=== PATIENT | male | born 1950 | race Hispanic/Latino ===

== ENCOUNTER 2019-03-01 16:29 | Emergency (ER) | payer SELFPAY ==
--- NOTE | 2019-03-01 17:11 | Emergency Department Report ---
Chief Complaint: Fall Stated Complaint: FALL/RT LEG AND ANKLE INJURY Time Seen by Provider: 03/01/19 17:09 - HPI History of Present Illness: pt states he slipped and fell in his house yesterday presents with right ankle pain and right foot pain pt is able to bear some weight states he hurt previously from basketball years ago hx of HTN, hypothyroid MSE screening note: Focused history and physical exam performed. Due to findings the following was ordered: XR right ankle and foot ED Disposition for MSE Condition: Stable
--- NOTE | 2019-03-01 18:07 | XRay Report ---
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 No acute fracture or disloca tion. IMPRESSION: No acute fracture or dislocation. There are osteoarthritic changes of the first metatarsophalangeal j oint. This document is electronically signed by Brenda Guo MD., March 01 2019 06:06:02 PM ET
--- NOTE | 2019-03-01 18:25 | XRay Report ---
PROCEDURE: XR ANKLE 3+V RT TECHNIQUE: Frontal, lateral, oblique views right ankle HISTORY: fall, right ankle pain COMPARISONS: X-ray right foot also performed today FINDINGS: There is a linear lucency through the distal fibula metaphysis with associated soft tissue swelling c oncerning for a nondisplaced fracture in this region. There is deformity of the distal diaphysis of the right fibula suggestive of sequela of previous frac tures. The distal tibia is unremarkable in appearance. The mortise joint is maintained. There is soft tissue swelling at the level of the ankle, lateral greater than medial. IMPRESSION: 1. Findings suggestive of a nondisplaced fracture through the distal fibula metaphysis. 2. Deformity distal diaphysis of the right fibula suggestive of sequela of previous fractures. Correl ation with clinical history will be helpful. This document is electronically signed by Nitza Chin MD., March 01 2019 06:23:11 PM ET
[2019-03-01] MEDS ORDERED: TORADOL IM ONE (20:05)
--- NOTE | 2019-03-01 20:07 | Emergency Department Report ---
ED Lower Extremity HPI - General Chief Complaint: Fall Stated Complaint: FALL/RT LEG AND ANKLE INJURY Time Seen by Provider: 03/01/19 17:09 Source: patient Mode of arrival: Ambulatory Limitations: No Limitations - History of Present Illness Initial Comments: She is a 68-year-old male who is status post ground-level fall after tripping at home now complaining of right leg pain. There is no obvious deformity on admission. - Related Data Home Medications Medication Instructions Recorded Confirmed Last Taken Lisinopril [Zestril] 20 mg PO QDAY 12/13/13 12/13/13 12/12/13 Previous Rx's Medication Instructions Recorded Last Taken Type DOXYCYCLINE Hyclate [Vibramycin 100 mg PO Q12HR #28 capsule 10/21/18 Unknown Rx CAP] metroNIDAZOLE [Flagyl] 500 mg PO Q12HR #28 tab 10/21/18 Unknown Rx Allergies Allergy/AdvReac Type Severity Reaction Status Date / Time Penicillins Allergy Anaphylaxis Verified 03/01/19 16:30 ED Review of Systems ROS: Stated complaint: FALL/RT LEG AND ANKLE INJURY Other details as noted in HPI Comment: All other systems reviewed and negative Musculoskeletal: as per HPI ED Past Medical Hx - Past Medical History Previous Medical History?: No Hx Hypertension: Yes Hx Heart Attack/AMI: No Hx Congestive Heart Failure: No Hx Diabetes: No Hx Deep Vein Thrombosis: No Hx Pulmonary Embolism: No Hx Liver Disease: No Hx Renal Disease: No Hx Sickle Cell Disease: No Hx Arthritis: No Hx Seizures: No Hx Kidney Stones: No Hx Psychiatric Treatment: Yes Hx Asthma: No Hx COPD: No Hx Dementia: No Hx HIV: No Additional medical history: hyperthroidism - Surgical History Past Surgical History?: No Hx Coronary Stent: No Hx Open Heart Surgery: No Hx Pacemaker: No Hx Internal Defibrillator: No Hx Cholecystectomy: No Hx Appendectomy: No Hx Breast Surgery: No - Family History Family history: no significant - Social History Smoking Status: Never Smoker Substance Use Type: Alcohol - Medications Home Medications: Home Medications Medication Instructions Recorded Confirmed Last Taken Type Lisinopril [Zestril] 20 mg PO QDAY 12/13/13 12/13/13 12/12/13 History DOXYCYCLINE Hyclate [Vibramycin 100 mg PO Q12HR #28 capsule 10/21/18 Unknown Rx CAP] metroNIDAZOLE [Flagyl] 500 mg PO Q12HR #28 tab 10/21/18 Unknown Rx ED Physical Exam - General Limitations: No Limitations General appearance: alert - Head Head exam: Present: atraumatic - Eye Eye exam: Present: normal appearance, PERRL Pupils: Present: normal accommodation - ENT ENT exam: Present: mucous membranes moist - Neck Neck exam: Present: normal inspection - Respiratory Respiratory exam: Present: normal lung sounds bilaterally - Cardiovascular Cardiovascular Exam: Present: regular rate - GI/Abdominal GI/Abdominal exam: Present: soft - Expanded Lower Extremity Exam Right Lower Leg exam: Present: tenderness Ankle exam: Present: normal inspection Foot/Toe exam: Present: normal inspection Neuro vascular tendon exam: Present: no vascular compromise. Absent: pulse deficit, abnormal cap refill, motor deficit, sensory deficit, tendon deficit, extremity cold to touch, pallor Gait: Positive: observed and limited by pain - Back Exam Back exam: Present: normal inspection. Absent: CVA tenderness (R) - Neurological Exam Neurological exam: Present: alert, oriented X3 - Psychiatric Psychiatric exam: Present: normal affect, normal mood ED Course Vital Signs 03/01/19 03/01/19 03/01/19 17:11 20:19 20:49 Temperature 97.5 F L Pulse Rate 99 H Respiratory 18 20 20 Rate Blood Pressure 155/75 Blood Pressure [Left] O2 Sat by Pulse 98 Oximetry 03/01/19 21:32 Temperature 98.0 F Pulse Rate 93 H Respiratory 20 Rate Blood Pressure Blood Pressure 145/79 [Left] O2 Sat by Pulse 98 Oximetry ED Lower Extremity MDM - Radiology Data Radiology results: report reviewed, image reviewed - Medical Decision Making POS FX IMMOBILIZED NEUROVASC INTACT BEFORE AND AFTER SPLINT DC HOME WITH DC PLAN OF CARE AND ORTHO FOLLOW UP DC HOME WITH FAMILY Vital Signs 03/01/19 03/01/19 03/01/19 17:11 20:19 20:49 Temperature 97.5 F L Pulse Rate 99 H Respiratory 18 20 20 Rate Blood Pressure 155/75 Blood Pressure [Left] O2 Sat by Pulse 98 Oximetry 03/01/19 21:32 Temperature 98.0 F Pulse Rate 93 H Respiratory 20 Rate Blood Pressure Blood Pressure 145/79 [Left] O2 Sat by Pulse 98 Oximetry Critical care attestation.: If time is entered above; I have spent that time in minutes in the direct care of this critically ill patient, excluding procedure time. ED Disposition Clinical Impression: Fibula fracture, Fall Disposition: DC-01 TO HOME OR SELFCARE Is pt being admited?: No Does the pt Need Aspirin: No Condition: Stable Additional Instructions: ice rest elevate avoid alcohol splin and crutches follow up with ortho this week motrin and tylenol alternating for pain Referrals: ANKITA HARO MD [Staff Physician] - 3-5 Days Time of Disposition: 20:38
[2019-03-03 17:55] VITALS: BP 145/79
== END 2019-03-01 21:35 | disposition home or self-care (01) ==
LOC: ED 16:29
DX: S82.831A Other fracture of upper and lower end of right fibula, initial encounter for closed fracture (principal); W18.30XA Fall on same level, unspecified, initial encounter; Y93.89 Activity, other specified; Y92.89 Other specified places as the place of occurrence of the external cause; Y99.8 Other external cause status
CPT/HCPCS: 29515; 73610; 73630; 96372; 99283; J1885